=== PATIENT | male | born 1985 | race Caucasian/White ===

== ENCOUNTER 2019-03-16 11:17 | Emergency (ER) | payer SELFPAY ==
[~2019-03-16] VITALS: Ht 180.3 cm; Wt 99.8 kg
[2019-03-16 11:39] VITALS: BP 144/91
[2019-03-16 12:08] LABS: BASO # 0.1 x10^3/uL (0.0-0.2); BASO % 1 % (0-3); EOS # 0.1 x10^3/uL (0.0-0.7); EOS % 2 % (0-3); HEMATOCRIT 48.4 % (39.0-53.0); HEMOGLOBIN 16.4 g/dL (13.0-17.5); LYMPH # 2.1 x10^3/uL (1.0-4.8); LYMPH % 37 % (24-48); MEAN CORPUSCULAR HEMOGLOBIN 29 pg (25-35); MEAN CORPUSCULAR HGB CONC 34 g/dL (31-37); MEAN CORPUSCULAR VOLUME 85 fL (79-100); MONO # 0.6 x10^3/uL (0.0-1.1); MONO % 10 % (0-9); NEUT # 2.9 x10^3/uL (1.8-7.7); NEUT % 50 % (31-73); PLATELET COUNT 289 x10^3/uL (140-400); RED BLOOD COUNT 5.68 x10^6/uL (4.30-5.70); RED CELL DISTRIBUTION WIDTH 13.3 % (11.5-14.5); WHITE BLOOD COUNT 5.8 x10^3/uL (4.0-11.0)
[2019-03-16 12:21] LABS: BILIRUBIN,URINE NEGATIVE (NEG); CLARITY,URINE CLEAR; COLOR,URINE YELLOW; NITRITE,URINE NEGATIVE (NEG); PH,URINE 5.5; PROTEIN,URINE NEGATIVE (NEG-TRACE); UROBILINOGEN,URINE 0.2 mg/dL (0.2 mg/dL)
--- NOTE | 2019-03-16 12:22 | PHYS DOC ---
Past Medical History Past Medical History: No Pertinent History Past Surgical History: No Surgical History Alcohol Use: None Drug Use: None Adult General Chief Complaint Chief Complaint: CHEST PAIN HPI HPI Patient is a 33 year old male who presents with was at work today on a ladder began having intense left chest left lung pain. Patient states this hurts more so when taking a deep breath and some with movement. Patient states he is having some shortness of air. Patient states that at that time he also had a sharp shooting pain going down his left arm. Patient states that the pain came on so abruptly that he almost fell down to the ground. Currently rates his pain an 8 out of 10 and states it comes and goes but again more so when taking a deep breath. Review of Systems Review of Systems Constitutional: Denies fever or chills [] Eyes: Denies change in visual acuity, redness, or eye pain [] HENT: Denies nasal congestion or sore throat [] Respiratory: Denies cough. shortness of breath [] Cardiovascular: Left chest and rib pain GI: Denies abdominal pain, nausea, vomiting, bloody stools or diarrhea [] : Denies dysuria or hematuria [] Musculoskeletal: Denies back pain or joint pain [] Integument: Denies rash or skin lesions [] Neurologic: Denies headache, focal weakness or sensory changes [] All other systems were reviewed and found to be within normal limits, except as documented in this note. Current Medications Current Medications Current Medications Medications (Trade) Dose Ordered Sig/Nydia Start Time Stop Time Status Last Admin Dose Admin Fentanyl Citrate (Fentanyl 2ml Vial) 50 mcg 1X ONCE 03/16/19 12:30 03/16/19 12:31 DC Orphenadrine Citrate (Norflex) 60 mg 1X ONCE 03/16/19 12:30 03/16/19 12:31 DC Allergies Allergies Allergies Coded Allergies Type Severity Reaction Last Updated Verified Penicillins Allergy Unknown "PASSES OUT" 03/16/19 Yes Physical Exam Physical Exam Constitutional: Well developed, well nourished, no acute distress, non-toxic appearance. [] HENT: Normocephalic, atraumatic, bilateral external ears normal, oropharynx moist, no oral exudates, nose normal. [] Eyes: PERRLA, EOMI, conjunctiva normal, no discharge. [] Neck: Normal range of motion, no tenderness, supple, no stridor. [] Cardiovascular:Heart rate regular rhythm, no murmur [] Lungs & Thorax: Right upper and lower breath sounds clear to auscultation, Left upper diminished and left lower clear [] Abdomen: Bowel sounds normal, soft, no tenderness, no masses, no pulsatile masses. [] Skin: Warm, dry, no erythema, no rash. [] Back: No tenderness, no CVA tenderness. [] Extremities: No tenderness, no cyanosis, no clubbing, ROM intact, no edema. [] Neurologic: Alert and oriented X 3, normal motor function, normal sensory function, no focal deficits noted. [] Psychologic: Affect normal, judgement normal, mood normal. [] Current Patient Data Vital Signs Vital Signs Date Time Temp Pulse Resp B/P (MAP) Pulse Ox O2 Delivery O2 Flow Rate FiO2 03/16/19 11:39 98.3 94 16 144/91 (108) 97 Room Air 98.3 Lab Values Laboratory Tests Test 03/16/19 11:35 03/16/19 12:07 White Blood Count 5.8 x10^3/uL (4.0-11.0) Red Blood Count 5.68 x10^6/uL (4.30-5.70) Hemoglobin 16.4 g/dL (13.0-17.5) Hematocrit 48.4 % (39.0-53.0) Mean Corpuscular Volume 85 fL (79-100) Mean Corpuscular Hemoglobin 29 pg (25-35) Mean Corpuscular Hemoglobin Concent 34 g/dL (31-37) Red Cell Distribution Width 13.3 % (11.5-14.5) Platelet Count 289 x10^3/uL (140-400) Neutrophils (%) (Auto) 50 % (31-73) Lymphocytes (%) (Auto) 37 % (24-48) Monocytes (%) (Auto) 10 % (0-9) H Eosinophils (%) (Auto) 2 % (0-3) Basophils (%) (Auto) 1 % (0-3) Neutrophils # (Auto) 2.9 x10^3/uL (1.8-7.7) Lymphocytes # (Auto) 2.1 x10^3/uL (1.0-4.8) Monocytes # (Auto) 0.6 x10^3/uL (0.0-1.1) Eosinophils # (Auto) 0.1 x10^3/uL (0.0-0.7) Basophils # (Auto) 0.1 x10^3/uL (0.0-0.2) D-Dimer (Myriam) < 0.27 ug/mlFEU Sodium Level 138 mmol/L (136-145) Potassium Level 4.2 mmol/L (3.5-5.1) Chloride Level 102 mmol/L (98-107) Carbon Dioxide Level 25 mmol/L (21-32) Anion Gap 11 (6-14) Blood Urea Nitrogen 17 mg/dL (8-26) Creatinine 1.2 mg/dL (0.7-1.3) Estimated GFR (Cockcroft-Gault) 70.6 BUN/Creatinine Ratio 14 (6-20) Glucose Level 94 mg/dL (70-99) Calcium Level 9.1 mg/dL (8.5-10.1) Total Bilirubin 1.0 mg/dL (0.2-1.0) Aspartate Amino Transferase (AST) 21 U/L (15-37) Alanine Aminotransferase (ALT) 43 U/L (16-63) Alkaline Phosphatase 78 U/L (46-116) Troponin I Quantitative < 0.017 ng/mL (0.000-0.055) Total Protein 8.1 g/dL (6.4-8.2) Albumin 4.2 g/dL (3.4-5.0) Albumin/Globulin Ratio 1.1 (1.0-1.7) Urine Collection Type Unknown Urine Color Yellow Urine Clarity Clear Urine pH 5.5 Urine Specific [place] 1.025 Urine Protein Negative mg/dL (NEG-TRACE) Urine Glucose (UA) Negative mg/dL (NEG) Urine Ketones (Stick) Negative mg/dL (NEG) Urine Blood Trace (NEG) Urine Nitrite Negative (NEG) Urine Bilirubin Negative (NEG) Urine Urobilinogen Dipstick 0.2 mg/dL (0.2 mg/dL) Urine Leukocyte Esterase Negative (NEG) Urine RBC >40 /HPF (0-2) Urine WBC Rare /HPF (0-4) Urine Bacteria 0 /HPF (0-FEW) Urine Opiates Screen Neg (NEG) Urine Methadone Screen Neg (NEG) Urine Barbiturates Neg (NEG) Urine Phencyclidine Screen Neg (NEG) Urine Amphetamine/Methamphetamine Neg (NEG) Urine Benzodiazepines Screen Neg (NEG) Urine Cocaine Screen Neg (NEG) Urine Cannabinoids Screen Neg (NEG) Urine Ethyl Alcohol Neg (NEG) Laboratory Tests 03/16/19 11:35 Laboratory Tests 03/16/19 11:35 EKG EKG Sinus Tachy, no STEMI[] Interpretation Time: [address] Angel Radiology/Procedures Radiology/Procedures [] Impressions: [place] [phone] IMAGING REPORT Signed PATIENT: BALTA CUNNINGHAM ACCOUNT: [id number] : 1985 LOCATION: ER AGE: 33 SEX: M EXAM STATUS: REG ER ORD. PHYSICIAN: GALE DUVAL APRN REASON: chest pain with taking deep breath PROCEDURE: CHEST PA & LATERAL EXAM: PA and Lateral Views of the Chest DATE: 03/16/2019 11:57 AM INDICATION: Pleuritic chest pain COMPARISON: No Prior FINDINGS: The heart is not enlarged. Mediastinal and hilar contours are normal. No focal parenchymal airspace opacity. No pleural effusion or pneumothorax. IMPRESSION: 1. No radiographic evidence for acute cardiopulmonary process. Electronically signed by: Isak Bill MD (03/16/2019 12:22 PM) [facility] DICTATED and SIGNED BY: ISAK BILL MD DATE: 03/16/[address] [address] IMAGING REPORT Signed PATIENT: BALTA CUNNINGHAM ACCOUNT: [id number] : 1985 LOCATION: ER AGE: 33 SEX: M EXAM STATUS: REG ER ORD. PHYSICIAN: GALE DUVAL APRN REASON: left side pain, blood in urine PROCEDURE: CT ABDOMEN PELVIS WO CONTRAST Examination: CT ABDOMEN PELVIS WO CONTRAST History: Left-sided pain, hematuria Comparison/Correlation: None Findings: Axial images of the abdomen and pelvis were obtained. Sagittal and coronal reformatted images were provided. Visualized lung bases are clear. Liver is normal. Sludge is noted in the gallbladder. Calcified granulomas involve the spleen. Pancreas and adrenal glands are normal. No radiopaque collecting system calculi. Urinary bladder is unremarkable. No hydronephrosis or hydroureter. No extraluminal gas. No bowel obstruction. No inflammatory changes about the cecum. Bilateral L5 pars interarticularis fractures are present. No significant malalignment. Mild concentric disc bulge at L5-S1. No enlarged abdominal or pelvic lymph nodes. No extraluminal gas. Impression: No radiopaque collecting system calculi or evidence of obstruction. CT urogram may be helpful. 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 PQRS Compliance Statement: One or more of the following individualized dose reduction techniques were utilized for this examination: 1. Automated exposure control 2. Adjustment of the mA and/or kV according to patient size 3. Use of iterative reconstruction technique Electronically signed by: Juan M Johnson MD (03/16/2019 1:39 PM) [id number] DICTATED and SIGNED BY: JUAN M JOHNSON MD DATE: 03/16/19 1339 Course & Med Decision Making Course & Med Decision Making Patient is a 33 year old male who presents with was at work today on a ladder began having intense left chest left lung pain. Patient states this hurts more so when taking a deep breath and some with movement. Patient states he is having some shortness of air. Patient states that at that time he also had a sharp shooting pain going down his left arm. Patient states that the pain came on so abruptly that he almost fell down to the ground. Currently rates his pain an 8 out of 10 and states it comes and goes but again more so when taking a deep kiarra ath. Patient denies palpitations, dizziness, LOC, nausea, vomiting, headache. Patient is ambulatory with a steady gait. Speaks in full clear sentences. Skin pink warm and dry. Alert and oriented. No extremity swelling. Abdomen is soft and nontender. Right lung sounds are clear to auscultation left upper lung sounds seem diminished in lower lung sounds are heard. Patient points to right mid rib cage when pointing out location for pain but there is no tenderness or crepitus felt with palpation. Patient refusing pain medication. Chest x-ray shows no acute findings. Patient's urinalysis shows no infection however he does have a large amount of blood in his urine. CT abdomen pelvis to rule out kidney stone. I have discussed this with the patient in he agrees to this plan. CT abdomen pelvis shows no acute findings. Patient will need to follow-up with his primary care provider due to having blood in his urine. Dragon Disclaimer Dragon Disclaimer This electronic medical record was generated, in whole or in part, using a voice recognition dictation system. PERC Rule for PE PERC Rule for PE Response (Comments) Value Age > 50: No 0 HR > 100: No 0 Sa02 on room air <95%: No 0 Unilateral leg swelling: No 0 Hemoptysis: No 0 Recent surgery or trauma: No 0 Prior PE or DVT: No 0 Hormone use: No 0 Total 0 Departure Departure Impression: Primary Impression: Muscle strain Additional Impression: Muscle spasm Disposition: 01 HOME, SELF-CARE Condition: STABLE Referrals: NO PCP (PCP) Patient Instructions: Muscle Cramps, Muscle Strain Additional Instructions: Follow-up her primary care provider. Drink plenty of fluids. Take medications as prescribed. Scripts Hydrocodone/Apap 5-325 (NORCO 5-325 TABLET) 1 Each Tablet 1 TAB PO PRN Q6HRS PRN for PAIN, #8 TAB 0 Refills Prov: GALE DUVAL APRN 03/16/19 Orphenadrine Citrate (ORPHENADRINE CITRATE) 100 Mg Tablet.er 1 TAB PO BID, #20 TAB Prov: GALE DUVAL APRN 03/16/19 Problem Qualifiers GALE DUVAL APRN Mar 16, 2019 12:22
[2019-03-16 12:23] LABS: CALCIUM 9.1 mg/dL (8.5-10.1); CREATININE 1.2 mg/dL (0.7-1.3); GFR 70.6; POTASSIUM 4.2 mmol/L (3.5-5.1)
--- NOTE | 2019-03-16 12:25 | RAD ---
EXAM: PA and Lateral Views of the Chest DATE: 03/16/2019 11:57 AM INDICATION: Pleuritic chest pain COMPARISON: No Prior FINDINGS: The heart is not enlarged. Mediastinal and hilar contours are normal. No focal parenchymal airspace opacity. No pleural effusion or pneumothorax. IMPRESSION: 1. No radiographic evidence for acute cardiopulmonary process. Electronically signed by: Isak Troncoso MD (03/16/2019 12:22 PM) [facility]
[2019-03-16 12:28] LABS: BARBITURATES NEG (NEG); BENZODIAZEPINES NEG (NEG); CANNABINOIDS NEG (NEG); COCAINE NEG (NEG); METHADONE NEG (NEG); OPIATES NEG (NEG); PHENCYCLIDINE NEG (NEG)
[2019-03-16 12:29] LABS: AMPHETAMINE/METHAMPHETAMINE NEG (NEG)
[2019-03-16 12:29] LABS: ALBUMIN 4.2 g/dL (3.4-5.0); ALBUMIN/GLOBULIN RATIO 1.1 (1.0-1.7); TOTAL PROTEIN 8.1 g/dL (6.4-8.2)
[2019-03-16] MEDS ORDERED: ORPHENADRINE CITRATE 60 MG/2 ML VIAL. IM ONE (12:30)
[2019-03-16] MEDS ORDERED: fentaNYL PF VIAL 100 MCG/2 ML VIAL IV ONE (12:30)
[2019-03-16 12:58] LABS: BACTERIA,URINE 0 /HPF (0-FEW); RBC,URINE >40 /HPF (0-2); WBC,URINE RARE /HPF (0-4)
--- NOTE | 2019-03-16 13:05 | EKG ---
[facility] [address] [place] [address] Test Date: 2019-03-16 Test Time: 11:22:24 Pat Name: BALTA CUNNINGHAM Department: Room: Gender: M It Analyst: : 1985 Requested By: GALE DUVAL Order Number: [id number] Reading MD: Measurements Intervals [place] Rate: 107 P: 60 NM: 160 QRS: 54 QRSD: 88 T: -5 QT: 314 QTc: 424 Interpretive Statements SINUS TACHYCARDIA T ABNORMALITY IN INFERIOR LEADS ABNORMAL ECG RI6.01 No previous ECG available for comparison
--- NOTE | 2019-03-16 13:43 | RAD ---
Examination: CT ABDOMEN PELVIS WO CONTRAST History: Left-sided pain, hematuria Comparison/Correlation: None Findings: Axial images of the abdomen and pelvis were obtained. Sagittal and coronal reformatted images were provided. Visualized lung bases are clear. Liver is normal. Sludge is noted in the gallbladder. Calcified granulomas involve the spleen. Pancreas and adrenal glands are normal. No radiopaque collecting system calculi. Urinary bladder is unremarkable. No hydronephrosis or hydroureter. No extraluminal gas. No bowel obstruction. No inflammatory changes about the cecum. Bilateral L5 pars interarticularis fractures are present. No significant malalignment. Mild concentric disc bulge at L5-S1. No enlarged abdominal or pelvic lymph nodes. No extraluminal gas. Impression: No radiopaque collecting system calculi or evidence of obstruction. CT urogram may be helpful. 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 PQRS Compliance Statement: One or more of the following individualized dose reduction techniques were utilized for this examination: 1. Automated exposure control 2. Adjustment of the mA and/or kV according to patient size 3. Use of iterative reconstruction technique Electronically signed by: Juan M Otoole MD (03/16/2019 1:39 PM) [id number]
[2019-03-16] MEDS ORDERED: HYDR-3164 PO (13:52)
[2019-03-16] MEDS ORDERED: ORPH100T PO (13:52)
== END 2019-03-16 14:24 | disposition home or self-care (01) ==
LOC: ER 11:17
DX: S29.011A Strain of muscle and tendon of front wall of thorax, initial encounter (principal); W18.39XA Other fall on same level, initial encounter; Y93.89 Activity, other specified; Y92.410 Unspecified street and highway as the place of occurrence of the external cause; Y99.8 Other external cause status
CPT/HCPCS: 36415; 71046; 74176; 80053; 80307; 81001; 84484; 85025; 85379; 93005; 99285